=== PATIENT | female | born 1995 | race Caucasian/White ===

== ENCOUNTER 2016-12-11 18:42 | Emergency (ER) | payer BC ==
[2016-12-11 20:05] VITALS: BP 109/70
[2016-12-11] MEDS ORDERED: Ketorolac INJ* 60 MG/2 ML VIAL IM ONE (20:47)
[2016-12-11 20:53] LABS: Hematocrit 39 % (35-47); Hemoglobin 13.2 g/dl (12.0-16.0); Mean Corpuscular HGB Conc 34 g/dl (31-36); Mean Corpuscular Hemoglobin 32 pg (27-31); Mean Corpuscular Volume 93 fL (80-97); Mean Platelet Volume 8 um3 (7.4-10.4); Red Blood Count 4.14 10^6/ul (4.0-5.4); Red Cell Distribution Width 13 % (10.5-15)
--- NOTE | 2016-12-11 21:24 | ED ---
I, Oh,Sodev, scribed for Neil To MD on 12/11/16 at 2044 . GI/ HPI - HPI Summary HPI Summary: This 21 y/o female presents to ED form convenient care for vaginal bleeding since last night. Positive "cervical pain". Pt does not have menses since her IUD placement. Pelvic exam was done at [facility]. Pt reports cervical lesion as recent diagnosis with recommended follow up for biopsy. Primary care involves [facility], but does not involve any keyliner. - History of Current Complaint Chief Complaint: EDVaginalBleeding Time Seen by Provider: 12/11/16 20:25 Stated Complaint: POSS EXCESSIVE CERVICAL BLEEDING/POSS PRE CANCER Hx Obtained From: Patient, Medical Records Onset/Duration: Started Days Ago, Atraumatic, Still Present Timing: Constant Pain Intensity: 9 Location of Pain: None Additional Signs & Symptoms: Positive: Vaginal Bleeding Aggravating Factor(s): Nothing Alleviating Factor(s): Nothing - Allergy/Home Medications Allergies/Adverse Reactions: Allergies Allergy/AdvReac Type Severity Reaction Status Date / Time Asparaginase Allergy Itching Verified 12/11/16 19:59 PMH/Surg Hx/FS Hx/Imm Hx History: Reports: Other Problems/Disorders - HPV - Immunization History Date of Tetanus Vaccine: unk Date of Influenza Vaccine: unk Infectious Disease History: No Infectious Disease History: Denies: Traveled Outside the [place] in Last 30 Days - Family History Known Family History: Negative: Hypertension - Social History Alcohol Use: Occasionally Hx Substance Use: No Substance Use Type: Reports: None Hx Tobacco Use: No Smoking Status (MU): Never Smoked Tobacco Review of Systems Negative: Fever Positive: pain - "cervical", other - vaginal bleeding All Other Systems Reviewed And Are Negative: Yes Physical Exam Triage Information Reviewed: Yes Vital Signs On Initial Exam: Initial Vitals Temp Pulse Resp BP Pulse Ox 98.3 F 92 14 112/84 100 12/11/16 18:47 12/11/16 18:47 12/11/16 18:47 12/11/16 18:47 12/11/16 18:47 Vital Signs Reviewed: Yes Appearance: Positive: Well-Appearing, No Pain Distress, Thin Skin: Positive: Warm Head/Face: Positive: Normal Head/Face Inspection Eyes: Positive: ARIADNA ENT: Positive: Hearing grossly normal Neck: Positive: Supple Respiratory/Lung Sounds: Positive: Clear to Auscultation, Breath Sounds Present Cardiovascular: Positive: RRR Abdomen Description: Positive: Nontender, Soft Musculoskeletal: Positive: Strength/ROM Intact Neurological: Positive: Alert, Oriented to Person Place, Time Psychiatric: Positive: Affect/Mood Appropriate - Master Coma Scale Coma Scale Total: 15 Diagnostics - Vital Signs Vital Signs Temp Pulse Resp BP Pulse Ox 12/11/16 19:54 98.8 F 75 16 109/70 100 12/11/16 18:47 98.3 F 92 14 112/84 100 - Laboratory Result Diagrams: 12/11/16 20:47 Lab Statement: Any lab studies that have been ordered have been reviewed, and results considered in the medical decision making process. - Additional Comments Diagnostic Additional Comments: Transvaginal/Pelvic US -- No ovarian torsion. Color flow with appropriate arterial and venous waveforms on the left and arterial waveforms on the right. No free fluid. Normal uterus with IUD in satisfactory position. Endometrial stripe complex 2 mm thick. Bladder decompressed. Re-Evaluation - Re-Evaluation First Eval Change: Improved Comment: results explained to pt, need for early cashier office f/u. pt requesting percocet and/or morphine. explained would tx with nsaids, pt states wants to gfet out of hospityal [facility] Course/Dx - Course Assessment/Plan: THis 21 y/o female presents to ED from Urgent care for vaginal bleeding since last night. Pelvic exam was done at Urgent care. US is taken in ED and noted normal. Pt reports that she was recently diagnosed with cervical lesion, but does not have any keyliner that she follows up with except for [facility]. Pt is discharged with outpatient referral to Dr. 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 - Diagnoses Provider Diagnoses: Vaginal bleeding Discharge - Discharge Plan Condition: Stable Disposition: HOME Prescriptions: Naproxen TAB* [Naprosyn 250 mg TAB*] 500 mg PO BID #20 tab Patient Education Materials: Naproxen (By mouth), Dysfunctional Uterine Bleeding (ED) Referrals: Brian Narayan MD [Medical Doctor] - 2 Days The documentation as recorded by the Vicente celestin Soohyun accurately reflects the service I personally performed and the decisions made by me, Neil To MD.
--- NOTE | 2016-12-11 22:17 | RAD ---
Indication: Vaginal bleeding, abdominal cramps. Real-time sonography of the pelvis was performed utilizing endovaginal technique. The uterus measures 6.8 x 3.0 x 4.0 cm. Endometrial echo measures 2 mm. IUD appears in place. Right ovary measures 3.7 x 1.7 x 2.5 cm. Left ovary measures 3.3 x 1.5 x 1.6 cm. Doppler interrogation demonstrates flow in both ovaries. IMPRESSION: IUD in place. No adnexal masses.
== END 2016-12-11 22:50 | disposition home or self-care (01) ==
LOC: ED 18:42
DX: N93.9 Abnormal uterine and vaginal bleeding, unspecified (principal); Z97.5 Presence of (intrauterine) contraceptive device; R10.2 Pelvic and perineal pain; Z86.19 Personal history of other infectious and parasitic diseases
CPT/HCPCS: 36415; 76830; 76856; 84702; 85025; 96372; 99282; J1885

== ENCOUNTER 2017-03-20 12:27 | Emergency (ER) | payer BC, MEDICAID ==
[2017-03-20 12:57] VITALS: BP 104/64
--- NOTE | 2017-03-20 14:07 | UC ---
Throat Pain/Nasal Guido HPI - HPI Summary HPI Summary: Had ST starting 4 days ago, marked laryngitis, woke up today with productive cough and nasal congestion. pt has strong history of bacterial sinusitis, sees ENT who would like t do surgery. In remission for CA, has had chemotherapy in the past. Denies current fever or trouble breathing, no hx asthma. - History of Current Complaint Chief Complaint: UCGeneralIllness Stated Complaint: THROAT PAIN Time Seen by Provider: 03/20/17 13:15 Hx Obtained From: Patient Hx Last Menstrual Period: none ?: No Onset/Duration: Gradual Onset, Lasting Days Severity: Moderate Cough: Productive Associated Signs & Symptoms: Positive: Sinus Discomfort, Nasal Discharge. Negative: Fever, Vomiting, Rash - Allergies/Home Medications Allergies/Adverse Reactions: Allergies Allergy/AdvReac Type Severity Reaction Status Date / Time Asparaginase Allergy Itching Verified 03/20/17 12:56 Home Medications: Home Medications LORazepam TAB(*) [Ativan 0.5 MG TAB (*)] 0.5 mg PO Q6H PRN 03/20/17 [History Confirmed 03/20/17] Methylphenidate TAB* [Ritalin TAB*] 10 mg PO DAILY PRN 03/20/17 [History Confirmed 03/20/17] PMH/Surg Hx/FS Hx/Imm Hx Cancer History: Cervical Cancer - dysplasia, has had 2 colposcopies this year Other Cancer History: "bone cancer" - Surgical History Surgical History: Yes Surgery Procedure, Year, and Place: knee surgery, mediport - Family History Known Family History: Negative: Hypertension - Social History 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, 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 Alcohol Use: Occasionally Substance Use Type: None Smoking Status (MU): Never Smoked Tobacco Review of Systems Constitutional: Negative Skin: Negative Eyes: Negative ENT: Sore Throat, Nasal Discharge, Sinus Congestion Respiratory: Cough Cardiovascular: Negative Gastrointestinal: Negative Genitourinary: Negative Motor: Negative Neurovascular: Negative Musculoskeletal: Negative Neurological: Negative Psychological: Negative Is Patient Immunocompromised?: No All Other Systems Reviewed And Are Negative: Yes Physical Exam Triage Information Reviewed: Yes Appearance: Well-Appearing, No Pain Distress, Well-Nourished Vital Signs: Initial Vital Signs Temp 98.2 F 03/20/17 12:52 Pulse 73 03/20/17 12:52 Resp 16 03/20/17 12:52 BP 104/64 03/20/17 12:52 Pulse Ox 100 03/20/17 12:52 Vital Signs Reviewed: Yes Eye Exam: Normal Eyes: Positive: Conjunctiva Clear ENT: Positive: Pharynx normal, Nasal congestion, TMs normal. Negative: Nasal drainage, TM bulging, TM dull, TM red, Tonsillar swelling, Tonsillar exudate Dental Exam: Normal Neck exam: Normal Neck: Positive: Supple, Nontender, No Lymphadenopathy Respiratory Exam: Other - occ cough Respiratory: Positive: Chest non-tender, Lungs clear, Normal breath sounds, No respiratory distress, No accessory muscle use Cardiovascular Exam: Normal Cardiovascular: Positive: RRR, No Murmur Musculoskeletal Exam: Normal Neurological Exam: Normal Neurological: Positive: Alert Psychological Exam: Normal Skin Exam: Normal Throat Pain/Nasal Course/Dx - Differential Dx/Diagnosis Provider Diagnoses: URI, likely viral. sinusitis Discharge - Discharge Plan Condition: Stable Disposition: HOME Prescriptions: Amoxicillin/Clavulanate TAB* [Augmentin TAB 875*] 875 mg PO BID #20 tab Patient Education Materials: Upper Respiratory Infection (ED), Rhinosinusitis ( ED) Forms: *Work Release Referrals: Nya Vidales MD [Primary Care Provider] - Additional Instructions: As we discussed, your length of symptoms and recent laryngitis strongly suggest a viral cause for your illness. You only need to start the antibiotic if you develop new fever over 100F, 1-sided sinus pain, or if you are not clearly improving in 4-5 days. See your primary care office or return here if you are not improving despite treatment.
== END 2017-03-20 14:10 | disposition home or self-care (01) ==
LOC: UCEAST 12:27
DX: J06.9 Acute upper respiratory infection, unspecified (principal); J32.9 Chronic sinusitis, unspecified
CPT/HCPCS: 99212; G0463

== ENCOUNTER 2017-05-13 17:26 | Emergency (ER) | payer BC, MEDICAID ==
[2017-05-13 17:37] VITALS: BP 109/55
--- NOTE | 2017-05-13 19:06 | RAD ---
Indication: Cough, fever. 2 views of the chest including dual energy PA views demonstrates hyperinflated lung forrester. No pleural fluid, pneumonia or pneumothorax is noted. No prior study is available for comparison. IMPRESSION: Hyperinflated lung forrester without definite evidence of pneumonia.
--- NOTE | 2017-05-13 19:34 | UC ---
Rick Miranda Nilda, scribed for Miguel Lui MD on 05/13/17 at 1832 . Respiratory Complaint HPI - HPI Summary HPI Summary: This patient is a 22 year old F presenting to [facility] [place] with a chief complaint of sudden onset, constant dyspnea and chest pain since earlier today. The patient rates the pain 5/10 in severity. Symptoms aggravated and alleviated by nothing. Patient reports cough, wheezing, rhinorrhea, sore throat, and pain behind ears for the past two days. Patient denies abd pain. No PMHx asthma. - History of Current Complaint Chief Complaint: UCRespiratory Stated Complaint: COUGH,SORE THROAT Time Seen by Provider: 05/13/17 18:24 Hx Obtained From: Patient Hx Last Menstrual Period: IUD Onset/Duration: Sudden Onset, Lasting Hours, Still Present Timing: Constant Severity Currently: Moderate Pain Intensity: 5 Pain Scale Used: 0-10 Numeric Character: Cough: Nonproductive Aggravating Factors: Nothing Alleviating Factors: Nothing Associated Signs And Symptoms: Positive: Pleuritic Chest Pain, Wheezing - Allergies/Home Medications Allergies/Adverse Reactions: Allergies Allergy/AdvReac Type Severity Reaction Status Date / Time Asparaginase Allergy Itching Verified 05/13/17 17:37 Home Medications: Home Medications Multiple Vitamins W/ Minerals [Vitamins & Minerals] 1 tab PO DAILY 05/13/17 [ History Confirmed 05/13/17] PMH/Surg Hx/FS Hx/Imm Hx GI/ History: Other Other GI/ History: HPV - Surgical History Surgical History: Yes Surgery Procedure, Year, and Place: knee surgery, mediport, CERVICAL SURGERY - Family History Known Family History: Negative: Hypertension - Social History Occupation: Student Alcohol Use: Occasionally Substance Use Type: None Smoking Status (MU): Never Smoked Tobacco Review of Systems ENT: Sore Throat, Nasal Discharge, Other - pain behind ears Respiratory: Cough, Other - wheezing, dyspnea Cardiovascular: Chest Pain Gastrointestinal: Other - negative abd pain All Other Systems Reviewed And Are Negative: Yes Physical Exam Triage Information Reviewed: Yes Vital Signs: Initial Vital Signs Temp 99.3 F 05/13/17 17:33 Pulse 110 05/13/17 17:33 Resp 16 05/13/17 17:33 BP 109/55 05/13/17 17:33 Pulse Ox 100 05/13/17 17:33 Vital Signs Reviewed: Yes - Additional Comments General: Mildly ill appearing, no pain distress Skin: warm, color reflects adequate perfusion, dry Head: normal Eyes: EOMI, ARIADNA ENT: + rhinorrhea, Tm normal, Mild erythema posterior pharynx Neck: supple, nontender, + anterior cervical lymphadenopathy Respiratory: breath sounds present, + Occasional Wheezing Cardiovascular: Tachycardic Abdomen: soft, nontender Bowel: present Musculoskeletal: normal, strength/ROM intact Neurological: normal, Psychological: affect/mood appropriate UC Diagnostic Evaluation - Laboratory O2 Sat by Pulse Oximetry: 100 - Radiology Radiology Interpretation Completed By: Radiologist - CXR, per radiologist, reveals hyperinflated lung forrester without definite evidence of pneumonia. Dr. Lui has reviewed this radiology report. Re-Evaluation - Re-Evaluation First Eval Re-Evaluation Time: 19:17 Comment: Reviewed labs and imaging with pt. Respiratory Course/Dx - Course Course Of Treatment: CXR, per radiologist, reveals hyperinflated lung forrester without definite evidence of pneumonia. Dr. Lui has reviewed this radiology report. Medications and allergies reviewed. DISCUSSED VIRAL VERES BACTERIAL INFECTIONS. PATIENT WISHES TO START AN ANTIBIOTIC AT THIS TIME. - Differential Dx/Diagnosis Provider Diagnoses: BRONCHITIS WITH BRONCHOSPASM Discharge - Discharge Plan Condition: Stable Disposition: HOME Prescriptions: Albuterol HFA INHALER* [Ventolin HFA Inhaler*] 2 puff INH Q4H PRN #1 mdi PRN Reason: Dyspnea Azithromyxin PITER (NF) [Z-Piter (Zithromax) 250 mg tabs #6] 2 tab PO .TODAY, THEN 1 DAILY #6 tab Patient Education Materials: Acute Bronchitis (ED), Bronchospasm (ED), Wheezing (ED) Forms: *Work Release Referrals: Nya Vidales MD [Primary Care Provider] - Additional Instructions: FOLLOW UP WITH YOUR DOCTOR. GET RECHECKED FOR ANY WORSENING OF YOUR CONDITION OR QUESTIONS OR CONCERNS. The documentation as recorded by the Rick celestin Nilda accurately reflects the service I personally performed and the decisions made by me, Miguel Lui MD.
== END 2017-05-13 19:30 | disposition home or self-care (01) ==
LOC: UCEAST 17:26
DX: J40 Bronchitis, not specified as acute or chronic (principal); J02.9 Acute pharyngitis, unspecified; Z88.8 Allergy status to other drugs, medicaments and biological substances
CPT/HCPCS: 71046; 87502; 99212; G0463

== ENCOUNTER 2017-08-15 15:06 | Emergency (ER) | payer BC, OTHER ==
[2017-08-15 15:33] VITALS: BP 103/65
--- NOTE | 2017-08-15 16:42 | UC ---
Lower Extremity/Ankle HPI - HPI Summary HPI Summary: 22 y/o female s/p fall on 08/12/2017 on ice, no ankle injury however injury to soft tissue outside of ankle, _ bleeding, controlled, redness started monday, conitnues to today- increased pain over past 24 hours pmh- bone cancer last chemo 2013 meds- IUD, ritalin no difficulty wound healing - History of Current Complaint Hx Obtained From: Patient Hx Last Menstrual Period: iud ?: No Onset/Duration: Sudden Onset, Lasting Days Severity Initially: Moderate Severity Currently: Moderate Pain Intensity: 6 Pain Scale Used: 0-10 Numeric <Sudha Forbes - Last Filed: 08/15/17 16:36> <Grace Swartz - Last Filed: 08/15/17 19:01> - History of Current Complaint Chief Complaint: UCLowerExtremity Stated Complaint: INFLAMED ANKLE INJURY Time Seen by Provider: 08/15/17 16:29 - Allergies/Home Medications Allergies/Adverse Reactions: Allergies Allergy/AdvReac Type Severity Reaction Status Date / Time asparaginase Allergy Itching Verified 08/15/17 15:34 PMH/Surg Hx/FS Hx/Imm Hx Previously Healthy: No - bone CA s/p chemo 2013 - Surgical History Surgical History: Yes Surgery Procedure, Year, and Place: knee surgery, mediport, CERVICAL SURGERY - Family History Known Family History: Negative: Hypertension - Social History Alcohol Use: Weekly Substance Use Type: None Smoking Status (MU): Never Smoked Tobacco <Sudha Forbes - Last Filed: 08/15/17 16:36> Review of Systems Skin: Other - redness Musculoskeletal: Arthralgia Is Patient Immunocompromised?: No - no chemo [facility] 2013 All Other Systems Reviewed And Are Negative: Yes <Sudha Forbes - Last Filed: 08/15/17 16:36> Physical Exam Triage Information Reviewed: Yes Appearance: Well-Appearing, No Pain Distress, Well-Nourished Vital Signs: Initial Vital Signs Temp 98.5 F 08/15/17 15:29 Pulse 85 08/15/17 15:29 Resp 18 08/15/17 15:29 BP 103/65 08/15/17 15:29 Pulse Ox 100 08/15/17 15:29 Eyes: Positive: Conjunctiva Clear Musculoskeletal: Positive: Strength Intact, ROM Intact, No Edema, Other: - no TTP over lat, med mal Neurological: Positive: Alert, Muscle Tone Normal Psychological Exam: Normal Skin: Positive: Other - superficial ulceration on L lat mal with ~ 2cm of erythema extending around wound, no drainage noted, TTP + blanching <Razia Forbesica - Last Filed: 08/15/17 16:36> Vital Signs: Initial Vital Signs Temp 98.5 F 08/15/17 15:29 Pulse 85 08/15/17 15:29 Resp 18 08/15/17 15:29 BP 103/65 08/15/17 15:29 Pulse Ox 100 08/15/17 15:29 <Grace Swartz - Last Filed: 08/15/17 19:01> Lower Extremity Course/Dx - Course Course Of Treatment: cellulitis s/p fall, keflex x 7 days f/u with [facility] - Differential Dx/Diagnosis Provider Diagnoses: cellulitis l lateral ankle <ArchiesheriSudha - Last Filed: 08/15/17 16:36> Discharge - Sign-Out/Discharge Documenting (check all that apply): Discharge - Billing Disposition and Condition Condition: GOOD Disposition: HOME <ArchiesheriSudha - Last Filed: 08/15/17 16:36> - Billing Disposition and Condition Condition: GOOD Disposition: HOME <Grace Swartz - Last Filed: 08/15/17 19:01> - Discharge Plan Condition: Good Disposition: HOME Prescriptions: Cephalexin CAP* [Keflex CAP*] 500 mg PO BID #14 cap Patient Education Materials: Cellulitis (DC) Referrals: Nya Vidales MD [Primary Care Provider] - Additional Instructions: - keflex twice a day for 7 days - follow up with increased redness, drainage, increased pain Attestation Statement User Type: Provider - I was available for consult. This patient was seen by the HOLGER. The patient was not presented to, seen by, or examined by me. -Micheal <Grace Swartz - Last Filed: 08/15/17 19:01>
== END 2017-08-15 16:50 | disposition home or self-care (01) ==
LOC: UCEAST 15:06
DX: L03.116 Cellulitis of left lower limb (principal); Z97.5 Presence of (intrauterine) contraceptive device; Z85.830 Personal history of malignant neoplasm of bone
CPT/HCPCS: 99212; G0463